=== PATIENT | female | born 1950 | race Caucasian/White ===

== ENCOUNTER 2023-05-27 13:30 | Outpatient (AMB) | payer MEDICARE, SELFPAY ==
--- NOTE | 2023-05-27 13:34 | AM.OFFWIN_ITS ---
Intake Vital Signs 05/27/23 13:35 Height 5 ft 2 in Weight 213 lb BMI 39.0 BP 160/80 H Blood Pressure Location Lt brachial Position Sitting Pulse 101 H Pulse Source Pulse Oximeter Temp 98.0 F Temp Source Temporal Artery Scan Pulse Oximetry (%) 96 Oxygen Delivery Method Room Air Intake Visit Reasons: [employer] LT knee pain Intake Note: pt is here today for lft knee pain started yesterday Patient Tobacco Use Status: Never used Tobacco Allergies amoxicillin Allergy (Mild, Verified 05/27/23 13:39) rash Do you need a note to return to daycare/school/sports/work: No HPI HPI Comments History of Present Illness Details 73 y/o female patient who presents to [facility] with c/o Left knee pain since yesterday. H/o Osteoarthritis on both knees, she currently receives Cortisone Injections every 3 months. Last dose Apr 2023. Reports taking Acetaminophen 650 mg with minimal relief. PFSH Social History Patient Tobacco Use Status: Never used Tobacco Review of Systems Const All systems reviewed & are unremarkable except as noted in HPI and below Physical Exam Vital Signs: Last Vital Signs Temp 98.0 F 05/27/23 13:35 Pulse 101 H 05/27/23 13:35 BP 160/80 H 05/27/23 13:35 Pulse Ox 96 05/27/23 13:35 Oxygen Delivery Method Room Air 05/27/23 13:35 BMI result Body Mass Index 39.0 Const General: comfortable and no acute distress Nutritional Appearance: overweight Orientation/consciousness: patient oriented x3 Neuro General: patient oriented x3, gait normal and no focal motor deficits Extrem Left lower extremity: full ROM, normal capillary refill, knee Details: normal to inspection, tenderness Location: of the patella Details: medially and laterally and normal ROM (Slightly limited due to pain); no swelling and no crepitus, ankle Details: normal to inspection, no edema and normal ROM; no tenderness and no swelling and foot Details: normal capillary refill and toes with normal ROM; no tenderness Psych Speech and movement: Normal speech and movement present Assessment & Plan Assessment & Plan (1) Osteoarthritis of left knee: Code(s): M17.12 - Unilateral primary osteoarthritis, left knee Qualifiers: Osteoarthritis type: unspecified Qualified Code(s): M17.12 - Unilateral primary osteoarthritis, left knee Plan: - Acetaminophen for pain relief - Applied Knee Brace for Support - IceHot - Elevate - Continue f/u with Ortho for Steroid injections as scheduled. Medications: New cyclobenzaprine 10 mg PO BEDTIME 20 tabs 0RF Muscle Spasm M17.12 - Unilateral primary osteoarthritis, left knee lidocaine 5% leave on most painful area for up to 12 hrs 1 patch topical Q24H 30 ea 0RF PAIN M17.12 - Unilateral primary osteoarthritis, left knee acetaminophen 1,000 mg (2 x 500 mg) PO Q6H PRN 30 caps 0RF pain (scale score 7- 10) M17.12 - Unilateral primary osteoarthritis, left knee Coding Level of Care Code New Pt Level 3 (27873) Diagnoses Osteoarthritis of left knee, unspecified osteoarthritis type M17.12 Osteoarthritis type: unspecified Time Spent (min) 15
[2023-05-27 13:35] VITALS: BP 160/80; PULSE 101; TEMP 36.7; O2SAT 96; BMI 39.0
== END 2023-05-27 14:18 | disposition home or self-care (01) ==
PROVIDERS: Visit Provider Nurse Practitioner Family
DX: M17.12 Unilateral primary osteoarthritis, left knee (principal)
CPT/HCPCS: 99203

== ENCOUNTER 2024-05-01 14:21 | Outpatient (AMB) | payer MEDICARE, SELFPAY ==
--- NOTE | 2024-05-01 15:09 | AM.OFFWIN_ITS ---
Intake Vital Signs 05/01/24 15:10 Height 5 ft 2 in BP 130/82 Blood Pressure Location Rt brachial Position Sitting Pulse 76 Pulse Source Pulse Oximeter Temp 98.1 F Temp Source Oral Pulse Oximetry (%) 97 Intake Visit Reasons: EP Cough, chills, aches Patient Tobacco Use Status: Never used Tobacco Allergies amoxicillin Allergy (Mild, Verified 05/01/24 15:10) rash Do you need a note to return to daycare/school/sports/work: Yes HPI HPI Comments History of Present Illness Details History - The patient is a 73-year-old female pr esenting with fatigue and cough x5 days. - No fever or chills are reported; minim al wheezing noted without prior history of significant respiratory illnesses like asthma or COPD. - Past medical history includes previous bronchitis and pneumonia. - Currently utilizing [id number] m edications including Tylenol for symptom relief. - Patient denies disrupted sleep, mentio ns experiencing improved rest. - Recently vaccinated for influenza Physical Exam General: Cooperative, healthy appearing, comfortable and no acute distress Orientation/consciousness: Patient oriented x3 Limitations: No limitations Head: Normal to inspection Ears: Hearing grossly normal bilaterally, external ears normal and TM's normal bilaterally Nose: Normal external nose present, Normal nares present and No nasal discharge present Face and sinus: Normal facial exam and Yes sinuses nontender Mouth: Normal oral and palatal mucosa present and moist mucous membranes Throat: Yes tonsils normal, Yes uvula midline. slight posterior oropharynx erythema Eyes: Appearance normal, both eyes and all related structures Neck: Normal visual inspection Respiratory: Clear to auscultation bilaterally. Normal respiratory effort, able to speak in complete sentences, Actively coughing, no respiratory distress, not tachypneic, no tripod positioning and no use of accessory muscles. Cardiovascular: Regular rate and rhythm. Normal S1 and S2 Skin: No rashes or lesions noted Neuro: Patient oriented x3 Extremities: Normal to inspection and Yes no clubbing, cyanosis or edema PFSH Social History Patient Tobacco Use Status: Never used Tobacco Review of Systems Const All systems reviewed & are unremarkable except as noted in HPI and below Physical Exam Vital Signs: Last Vital Signs Temp 98.1 F 05/01/24 15:10 Pulse 76 05/01/24 15:10 BP 130/82 05/01/24 15:10 Pulse Ox 97 05/01/24 15:10 Assessment & Plan Assessment & Plan (1) Influenza-like illness: Code(s): J11.1 - Influenza due to unidentified influenza virus with other respiratory manifestations Plan: VSS, pt well appearing and PE unremarkable. With symptoms highly indicative of influenza, appropriate Flu, COVID-19, and RSV testing was performed to confirm the diagnosis, with results anticipated by the following morning. Based on the examination and symptomatology, an albuterol inhaler was prescribed to alleviate self reported minor wheezing. Symptomatic management will also include decongestants and the potential use of Benadryl to address any resultant symptom severity, notwithstanding the patient's current satisfactory sleep conditions. Given that the patient is beyond the window for Tamiflu administration, s upportive care including hydration and rest is emphasized. Current examination findings are reassuring, and no additional immediate interventions are deemed necessary at this time. Patient was informed and verbally consented to the use of an ambient scribe for clinic note documentation during this visit Orders: Orders SARS-CoV2/FLU/RSV Today R09.89 - Other specified symptoms and signs involving the circulatory and respiratory systems Medications: New albuterol sulfate 90 mcg/actuation 2 puffs inhalation Q6H PRN 8.5 grams 0RF shortness of breath or wheezing or cough Coding Level of Care Code New Pt Level 3 (61538) Diagnoses Influenza-like illness J11.1
[2024-05-01 15:10] VITALS: BP 130/82; PULSE 76; TEMP 36.7; O2SAT 97
--- OUTSIDE RECORDS SUMMARY | 2024-05-01 16:32 | XMS_ITS | Clinical Summary ---
Author Organization [address] Address [address] [place] [address] Phone Care Team Providers Care Pallet Assembler Name Role Phone Jose Diane Primary Care Provider [phone] Allergies Active Allergy Reactions Criticality Noted Date Comments Amoxicillin Trihydrate Nausea And Vomiting High 10/06 Other Reaction(s): Rash/Dermatitis Bee Venom Protein (Honey Bee) Swelling 08/27/2008 Coconut Oil 02/18/2018 Doxycycline Hyclate Nausea And Vomiting Medium 018 Headache Pollen Extracts Runny nose 07/31/2010 Procaine Hcl High 10/20/2005 had seizure Medications mv-mn/folic ac/calcium/vit K1 (WOMEN'S 50 PLUS MULTIVITAMIN ORAL) Take by mouth. Activ e amLODIPine (NORVASC) 10 mg tablet TAKE ONE TABLET BY MOUTH EVERY DAY 4 Active EPINEPHrine (EpiPen 2-Topher) 0.3 mg/0.3 mL injection Inject 0.3 mg into the muscle as needed for Other (anaphylactic reaction). 2-pack. Fill with whichever brand is covered by insurance. 3 Active estradioL (ESTRACE) 1 mg tablet TAKE ONE TABLET BY MOUTH AT BEDTIME 4 Active fluticasone HFA (FLOVENT HFA) 110 mcg/actuation inhaler Inhale 1 Puff into the lungs 2 times daily for 30 days. 10/25/202 2 Active fluticasone propionate (FLONASE) 50 mcg/actuation nasal spray INHALE 2 SPRAYS IN EACH NOSTRIL DAILY 4 Active levothyroxine (SYNTHROID, LEVOTHROID) 50 mcg tablet TAKE ONE TABLET BY MOUTH EVERY DAY 4 Active LORazepam (ATIVAN) 1 mg tablet TAKE ONE TABLET BY MOUTH EVERY DAY NEEDED FOR ANXIETY 4 Active triamcinolone (KENALOG) 0.1 % cream APPLY TO AFFECTED AREA TWICE A DAY 3 Active celecoxib (CeleBREX) 200 mg capsule TAKE ONE CAPSULE BY MOUTH TWICE A DAY 180 capsule 3 4 Active cyclobenzaprine (FLEXERIL) 10 mg tablet Take 1 tablet (10 mg total) by mouth 3 (three) times a day if needed for muscle spasms. 90 tablet 3 4 Active losartan (COZAAR) 100 mg tablet Take 1 tablet (100 mg total) by mouth 1 (one) time each day. 30 each 5 4 08/15/19 25 Active Active Problems Problem Noted Date Diagnosed Date Osteoarthritis 04/18/2024 Menopausal symptom 04/18/2024 Vasomotor symptoms due to menopause 08/07/2019 Osteoarthritis of both knees 05/18/2016 Allergic conjunctivitis 07/24/2013 Allergic rhinitis 07/24/2013 Obesity, unspecified 04/28/2010 Assessment & Plan (02/16/2024 12:45 PM EST): Orders: Basic metabolic panel; Future Anxiety state 10/19/2005 Assessment & Plan (02/16/2024 12:45 PM EST): Orders: Basic metabolic panel; Future Essential hypertension, benign 10/19/2005 Assessment & Plan (02/16/2024 12:45 PM EST): Orders: Basic metabolic panel; Future Hypothyroidism 10/19/2005 Assessment & Plan (02/16/2024 12:45 PM EST): Orders: Basic metabolic panel; Future Encounters Date Type Department Care Team Description 02/16/2024 12:00 PM EST Office Visit Adult Medicine [facility] [address] [place] [phone] Jose Diane PA Essential hypertension, benign (Primary Dx); Need for prophylactic vaccination and inoculation against influenza; Routine general medical examination at a health care facility; Hypothyroidism, unspecified type; Anxiety state; Obesity without serious comorbidity, unspecified class, unspecified obesity type from Last 3 Months Immunizations Name Administration Dates Next Due Influenza Quadravalent, 0.5m l (Fluad) 65yo and older 02/24/2021 Influenza trivalent, 0.5mL ( Fluad) 65yo and older 02/16/2024,11/18/2022,02/19/2021 Influenza trivalent, 0.5mL, preservative free (Fluarix; FluLaval; Fluzone) ages 6mo and older (Afluria) 3 years and older 12/28/2013,12/07/2011,12/26/2006 Influenza, Unspecified 12/07/2021 Moderna SARS-CoV-2 COVID-19, mRNA, LNP-S, preservative free 07/07/2021 Pneumococcal conjugate 13 va lent (Prevnar 13, PCV13) 2mo and older 02/19/2021,07/21/2018 Pneumococcal polysaccharide 23 valent (Pneumovax 23) 2yo and older 02/12/2021,05/27/2017,03/08/2007 Td Tetanus diptheria (Tdvax) 7yo and older 05/27 Tdap Tetanus diptheria acell ular pertussis (Boostrix; Adacel) 7yo and older 11/15/2006 Zoster Live 04/01/2012 Zoster recombinant (Shingrix ) 19yo and older 07/07/2021,04/08/2021 Surgical History Surgery Date Site/Laterality Comments OTHER SURGICAL HISTORY PROCEDURE: OH TOTAL ABDOMINAL HYSTERECT W/WO RMVL TUBE OVARY; COMMENT: and ovaries APPENDECTOMY PROCEDURE: OH APPENDECTOMY OTHER SURGICAL HISTORY PROCEDURE: HISTORY OTHER; COMMENT: vocal cord polyps twice KNEE SURGERY Bilateral PROCEDURE: HISTORICAL KNEE SURGERY; COMMENT: ARTHROSCOPIC SURGERY - meniscal tear BUNIONECTOMY Bilateral PROCEDURE: OH CORRJ HLX VLGS BNCTY SESMDC W/DOUBLE OSTEOTOMY; COMMENT: bunion surgery COLONOSCOPY 10/04/2003 PROCEDURE: HISTORICAL COLONOSCOPY; COMMENT: normal BREAST BIOPSY 2014ish Left PROCEDURE: BX BREAST; PERC NEEDLE CORE W/IMAG GUID; COMMENT: cyst asp BREAST BIOPSY 05/07/2021 Left PROCEDURE: OH BX BREAST W/DEVICE 1ST LESION ULTRASOUND GUID Medical History Medical History Date Comments Essential hypertension, benign 10/19/2005 D X:Essential hypertension, benign Unspecified hypothyroidism 10/19/2005 DX:Un specified hypothyroidism Anxiety state, unspecified 10/19/2005 DX:An xiety state, unspecified Obesity, unspecified 04/28/2010 DX:Obesity, unspecified Family History Medical History Relation Name Comments Breast cancer Neg Hx Colon cancer Neg Hx Ovarian cancer Neg Hx Relation Name Status Comments Brother 1 Alive HTN Brother 2 Alive Brother 3 Alive Father (Age 62) SC, dm, ht n Mother (Age 84) DM HTN Sister 1 Alive hodgkins lympho ma Sister 2 Alive Sister 3 Alive Social History Tobacco Use Types Packs/Day Years Used Date Smoking Tobacco: Never Smokeless Tobacco: Never Tobacco Cessation:Counseling Given: Not Answered Alcohol Use Standard Drinks/Week Comments Yes 0 (1 standard drink = 0.6 oz pur e alcohol) Housing Instability Answer Date Recorde d Are you worried that in the next 2 months you may not have stable housing? No 02/16/2024 Food Access & Nutrition Answer Date Rec orded Do you have access to a vari ety of food including fruits and vegetables? Yes 02/16/2024 Health Literacy Answer Date Recorded How often do you need to hav e someone help you when you read instructions, pamphlets, or other written material from your doctor or pharmacy? Never 02/16/2024 Caregiver: How often do you need to have someone help you when you read instructions, pamphlets, or other written material from your doctor or pharmacy? Not on file 02/16/2024 Financial Risk Answer Date Recorded How hard is it for you to pa y for the very basics like food, housing, medical care, and air conditioning / heating? Not very hard 02/16/2024 Transportation Answer Date Recorded Has the lack of transportati on kept you from meetings, work, or from getting things needed for daily living? No Has the lack of transportati on kept you from medical appointments or from getting medications? No 02/16/2024 Social Isolation Answer Date Recorded How often do you feel lonely or isolated from th ose around you? Never 02/16/2024 Food Risk Answer Date Recorded Within the past 12 months we worried whether our food would run out before we got money to buy more. Never true 02/16/2024 Within the past 12 months th e food we bought just didn't last and we didn't have money to get more. Never true 02/16/2024 Dependent Care Answer Date Recorded Do you need help finding or paying for care for your loved ones. For example, children's ministries director or elderly care for an older adult? No 02/16/2024 Education Answer Date Recorded Do you think completing more education or training, like finishing a GED, going to college, or learning a trade, would be helpful for you? No 02/16/2024 Employment and Income Answer Date Recor ded During the last four weeks, have you been actively looking for work? No 02/16/2024 Living Situation Answer Date Recorded What is your living situation? 1 04/18/2023 Comments Unknown Sex and Gender Information Value Date Recorded Sex Assigned at Not on file Legal Sex Female 5:14 AM EST Gender Identity Not on file Sexual Orientation Not on file Obstetrics History Last Filed Vital Signs Vital Sign Reading Time Taken Comments Blood Pressure 151/74 02/16/2024 12:07 PM EST provider will be recheck Pulse 79 02/16/2024 12:07 PM EST Temperature 36.1 ??C (96.9 ??F) 02/16/2024 1 2:07 PM EST Respiratory Rate 13 02/16/2024 12:0 7 PM EST Oxygen Saturation - - Inhaled Oxygen Concentration - - Weight 98.8 kg (217 lb 12.8 oz) 02/16/2024 12:07 PM EST Height 157.5 cm (5' 2 ) 02/16/2024 12:0 7 PM EST Body Mass Index 39.84 02/16/2024 12:07 PM EST Plan of Treatment Upcoming Encounters Date Type Department Care Team (Late st Contact Info) Description 06/12/2024 2:40 PM EDT Appointment Radiology Department [address] [phone] Health Maintenance Due Date Last Done Comments RSV Immunization Patients 60+ Years Old (1 - Risk 60-74 years 1-dose series) 2011 COVID-19 Vaccine ( season) 2023 07/07/2021, 01/29/2021, 01/09/2021, Additional history exists Breast Cancer Screening 06/15/2024 06/16/19 23, 05/07/2021, 05/05/2021, Additional history exists Hypertension/CHF/CAD Annual BMP Blood Test 02/13/2025 02/14/2024, 04/12/2023 Depression Screening 02/15/2025 02/16/2024 Falls Risk Assessment 02/15/2025 02/16/2024, 024 Medicare Annual Wellness Visit 02/15/2025 02/16/2024 Social Influencers of Health Screening 02/15/2025 02/16/2024 Osteoporosis Screening (Bone Density Screening) 06/14/2025 06/14/2020 Colorectal Cancer Screening: FIT-DNA (Cologuard) 12/14/2025 12/14/2022 DTaP,Tdap,and Td Vaccines (3 - Td or Tdap) 05/28/2027 05/27/2017, 11/15/2006 Cholesterol Screening (Lipid Panel) 02/13/2029 02/14/2024, 04/12/2023 Hepatitis C Screening Completed 07/21/2018 Pneumococcal Vaccine: 50+ Years Completed 02/19/2021, 02/12/2021, 07/21/2018, Additional history exists Zoster Vaccines Completed 07/07/2021, 03/2021, 04/01/2012 Colorectal Cancer Screening: Colonoscopy Discontinued 12/14/2022 Influenza Vaccine Completed 02/16/2024, , 12/07/2021, Additional history exists HIB Vaccines Aged Out No longer eligi ble based on patient's age to complete this topic HPV Vaccines Aged Out No longer eligi ble based on patient's age to complete this topic Hepatitis A Vaccines Aged Out No long er eligible based on patient's age to complete this topic Hepatitis B Vaccines Aged Out No long er eligible based on patient's age to complete this topic IPV Vaccines Aged Out No longer eligi ble based on patient's age to complete this topic MMR Vaccines Aged Out No longer eligi ble based on patient's age to complete this topic Meningococcal ACWY Vaccine Aged Out N o longer eligible based on patient's age to complete this topic Meningococcal B Vacine Aged Out No lo nger eligible based on patient's age to complete this topic RSV Immunization Patients Under 20 months Aged Out No longer eligible based on patient's age to complete this topic Varicella Vaccines Aged Out No longer eligible based on patient's age to complete this topic Procedures Procedure Name Priority Date/Time Associated Diagnosis Comments THYROID STIMULATING HORMONE WITH REFLEX TO FREE T4 AND FREE T3 Routine 02/14/2024 1:53 PM EST Generalized anxiety disorder Pre-operative cardiovascular examination Essential hypertension, malignant Myxedema heart disease COMPREHENSIVE METABOLIC PANEL Routine 02/14/2024 1:53 PM EST Generalized anxiety disorder Pre-operative cardiovascular examination Essential hypertension, malignant Myxedema heart disease LIPID PANEL WITH REFLEX TO DIRECT LDL Routine 02/14/2024 1:53 PM EST Generalized anxiety disorder Pre-operative cardiovascular examination Essential hypertension, malignant Myxedema heart disease FALLS RISK ASSESSMENT Routine 03/22/2023 COLONOSCOPY Routine 12/14/2022 SCREENING MAMMOGRAPHY BI 2-VIEW BREAST INC CAD Routine 06/15/2022 6:27 PM EDT Encounter for screening mammogram for malignant neoplasm of breast DXA BONE DENSITY STUDY 1+ SITS AXIAL SKEL Routine 06/14/2020 4:11 PM EDT Encounter for screening for osteoporosis HEPATITIS C SCREENING Routine 07/21/2018 from Last 3 Months or Most Recently Relevant to Health Maintenance Results * Thyroid stimulating hormone with reflex to free t4 and free t3 (02/14/2024 1:53 PM EST) TSH 2.35 0.40 - 4.00 mcIU/mL LAB CHEMISTRY METHOD 02/14/2024 6:13 PM EST [facility] Blood Venous blood specimen / Unknown Venipuncture / Unknown 02/14/2024 1:53 PM EST 02/14/2024 1:53 PM EST Jose MELO LAB BLOOD ORDERABLES Tiffanie l Result [facility] [address] [place] [address], [place] [phone] * (ABNORMAL) Lipid panel with reflex to direct LDL (02/14/2024 1:53 PM EST) Cholesterol 212(H) 0 - 200 mg/dL LAB CHEMISTRY METHOD 02/14/2024 6:41 PM EST [facility] Triglycerides 174(H) 0 - 150 mg/dL LAB CHEMISTRY METHOD 02/14/2024 6:41 PM EST [facility] HDL 71 >=40 mg/dL LAB CHEMISTRY METHOD 02/14/2024 6:41 PM [facility] LDL Calculated 106(H) 0 - 100 mg/dL LAB CHEMISTRY METHOD 02/14/2024 6:41 PM EST [facility] VLDL Cholesterol Manuel 34.8 mg/dL LAB CHEMISTRY METHOD 02/14/2024 6:41 PM EST [facility] Non HDL Chol. (LDL+VLDL) 141 <145 mg/dL LAB CHEMISTRY METHOD 02/14/2024 6:41 PM [facility] Chol/HDL Ratio 3.0 0.0 - 4.4 LAB CHEMISTRY METHOD 02/14/2024 6:41 PM [facility] Blood Venous blood specimen / Unknown Venipuncture / Unknown 02/14/2024 1:53 PM EST 02/14/2024 1:53 PM EST Jose MELO LAB BLOOD ORDERABLES Tiffanie l Result [facility] [address] [place] [address], [place] [phone] * (ABNORMAL) Comprehensive metabolic panel (02/14/2024 1:53 PM EST) Sodium 137 133 - 145 mmol/L LAB CHEMISTRY METHOD 02/14/2024 6:41 PM [facility] Potassium 4.1 3.5 - 5.5 mmol/L LAB CHEMISTRY METHOD 02/14/2024 6:41 PM [facility] Chloride 104 96 - 110 mmol/L LAB CHEMISTRY METHOD 02/14/2024 6:41 PM [facility] CO2 27 21 - 32 mmol/L LAB CHEMISTRY METHOD 02/14/2024 6:41 PM [facility] Anion Gap 6 3 - 11 LAB CHEMISTRY METHOD 02/14/2024 6:41 PM [facility] Glucose 117(H) 70 - 100 mg/dL LAB CHEMISTRY METHOD 02/14/2024 6:41 PM [facility] BUN 22 5 - 25 mg/dL LAB CHEMISTRY METHOD 02/14/2024 6:41 PM [facility] Creatinine 1.09 0.50 - 1.10 mg/dL LAB CHEMISTRY METHOD 02/14/2024 6:41 PM [facility] eGFR 54(L) >=60 mL/min/1. 73m2 LAB CHEMISTRY METHOD 02/14/2024 6:41 PM [facility] Comment:Calculation based on the??Chronic Kidney Disease Epidemiology Collaboration (CKD-EPI) equation refit??without adjustment for race. BUN/Creatinine Ratio 20.2 LAB CHEMISTRY METHOD 02/14/2024 6:41 PM [facility] Calcium 9.4 8.5 - 10.5 mg/dL LAB CHEMISTRY METHOD 02/14/2024 6:41 PM [facility] AST (SGOT) 17 10 - 42 unit/L LAB CHEMISTRY METHOD 02/14/2024 6:41 PM [facility] ALT (SGPT) 20 10 - 60 unit/L LAB CHEMISTRY METHOD 02/14/2024 6:41 PM EST [facility] Alkaline Phosphatase 61 42 - 121 unit/L LAB CHEMISTRY METHOD 02/14/2024 6:41 PM [facility] Total Protein 7.0 6.0 - 8.0 g/dL LAB CHEMISTRY METHOD 02/14/2024 6:41 PM [facility] Albumin 3.4 3.2 - 5.0 g/dL LAB CHEMISTRY METHOD 02/14/2024 6:41 PM [facility] Total Bilirubin 0.3 0.0 - 1.4 mg/dL LAB CHEMISTRY METHOD 02/14/2024 6:41 PM [facility] Blood Venous blood specimen / Unknown Venipuncture / Unknown 02/14/2024 1:53 PM EST 02/14/2024 1:53 PM EST Jose MELO LAB BLOOD ORDERABLES Tiffanie l Result [facility] [address] [place] [address], * Falls Risk Assessment (03/22/2023) Falls Risk Assessment Abstracted [facility] Provider HEALTH MAINTENANCE Final Result * Colonoscopy (12/14/2022) Colonoscopy No Interpretation , Abstracted Anatomical Region Laterality Modality Other [facility] Provider HEALTH MAINTENANCE Final Result * SCREENING MAMMOGRAPHY BI 2-VIEW BREAST INC CAD (06/15/2022 6:27 PM EDT) Anatomical Region Laterality Modality Radiographic Reyna ging 04/17/2021 5:53 PM EST Narrative 06/16/2022 9:34 AM EDT This is a summary report. The complete report is available in the patient's medical record. If you cannot access the medical record, please contact the sending organization for a detailed fax or copy. Full field digital screening tomosynthesis mammography, reviewed with CAD and compared to previous. ??The breasts are composed of fatty and fibroglandular tissue. ??No suspicious mass, architectural distortion or suspicious calcifications are identified. IMPRESSION: : No mammographic evidence of malignancy. BIRADS 1-Negative; N. 5 year breast cancer risk assessment 1.7 % Lifetime breast cancer risk assessment 4.8 % Breast cancer risk category Low (<15%) Procedure Note Leidy Gottlieb MD - 04/12/2023 This is a summary report. The complete report is available in thepatient's medical record. If you cannot access the medical record, pleasecontact the sending organization for a detailed fax or copy. Full field digital screening tomosynthesis mammography, reviewed with CADand compared to previous. The breasts are composed of fatty andfibroglandular tissue. No suspicious mass, architectural distortion orsuspicious calcifications are identified. IMPRESSION: : No mammographic evidence of malignancy. BIRADS 1-Negative; N. 5 year breast cancer risk assessment 1.7 % Lifetime breast cancer risk assessment 4.8 % Breast cancer risk category Low (<15%) us Jose MELO IMG XR PROCEDURES Final R esult * DXA BONE DENSITY STUDY 1+ SITS AXIAL SKEL (06/14/2020 4:11 PM EDT) Anatomical Region Laterality Modality Bone Densitometr y 02/06/2020 10:2 4 AM EST Narrative 06/14/2020 6:36 PM EDT Clinical history: menopausal/postmenopausal disorder Scans of the lumbar spine and hips were performed on a [employer] fan beam bone densitometer. ? Bone mineral density measurements and associated T and Z scores respectively are as follows: Lumbar Spine: L1-L4 BMD: 1.072 g/cm2 ? T-Score: 0.2 ? Z-Score: 2.3 Left Proximal Femur: Neck BMD: 0.789 g/cm2 ? T-Score: -0.5 ?? Z-Score: 1.2 Total BMD: 0.977 g/cm2 ? T-Score: 0.3 ?Z-Score: 1.7 Compared with standards for the young adult, lowest measured bone density places the patient in the W.H.O. normal range. IMPRESSION: IMPRESSION: Normal bone density. The NOF guidelines recommend that FDA approved medical therapies be considered in postmenopausal women and men age >50 years with a: i. Hip or vertebral (clinical or morphometric) fracture ii. T score of < -2.5 at the spine or hip iii. 10 year fracture probability by FRAX of >3% for hip fracture, or >20% for major osteoporotic fracture PLEASE NOTE: ?? W.H.O. classification is based on lowest measured density at the spine, femoral neck, or total hip.This classification has prognostic significance when applied to post menopausal women and older men. 1) ??The World Health Organization defines low BMD as follows: ?T-score ? Normal ? at or > -1 Osteopenia ? < -1 and ??> - 2.5 Osteoporosis ? at or < -2.5 without fractures Established osteoporosis ? < -2.5 with fractures Procedure Note Kalyan Bowman MD - 02/24/2022 Clinical history: menopausal/postmenopausal disorder Scans of the lumbar spine and hips were performed on a [employer] beam bone densitometer. Bone mineral density measurements and associated T and Z scoresrespectively are as follows: Lumbar Spine: L1-L4 BMD: 1.072 g/cm2 T-Score: 0.2 Z-Score: 2.3 Left Proximal Femur: Neck BMD: 0.789 g/cm2 T-Score: -0.5 Z-Score: 1.2 Total BMD: 0.977 g/cm2 T-Score: 0.3 Z-Score: 1.7 Compared with standards for the young adult, lowest measured bone densityplaces the patient in the W.H.O. normal range. IMPRESSION: IMPRESSION: Normal bone density. The NOF guidelines recommend that FDA approved medical therapies beconsidered in postmenopausal women and men age >50 years with a: i. Hip or vertebral (clinical or morphometric) fracture ii. T score of < -2.5 at the spine or hip iii. 10 year fracture probability by FRAX of >3% for hip fracture, or >20%for major osteoporotic fracture PLEASE NOTE: W.H.O. classification is based on lowest measured density at the spine,femoral neck, or total hip.This classification has prognostic significance when applied to postmenopausal women and older men. 1) The World Health Organization defines low BMD as follows: T-score Normal at or > -1 Osteopenia < -1 and > -2.5 Osteoporosis at or < -2.5 withoutfractures Established osteoporosis < -2.5 with fractures Taz Cleaning MD [facility] [place] PROCED[place] Final Result * Hepatitis C Screening (07/21/2018) [facility] Hepatitis C Screening Abstracted Historical Provider HEALTH MAINTENANCE Final Result from Last 3 Months or Most Recently Relevant to Health Maintenance Insurance MEDICARE [facility] Care Teams Pallet Assembler Relationship Specialty Start Date End Date Jose Diane PA [address] [place] [address] PCP - General Internal Medicine 02/06/20
--- OUTSIDE RECORDS SUMMARY | 2024-05-01 16:32 | XMS_ITS | Patient Health Record ---
Author Organization [facility] Address [address] [place] [address] Support Name Relationship Address Phone JOY BARNES Guarantor Unknown [phone] Reason For Referral No Information Medications Medication SIG (Take, Route, Frequency, Duration) Notes Start Date End Date Status Ativan 1MG 1 ORAL three times d aily for [facility] 05/26/2011 Active Norvasc 10MG 1 [place] [facility] [place] Active Tylenol Extra Strength 500MG 2 [place]AL four times daily [place] [facility] [place]/26/2011 Active Premarin 0.45 MG 1 ORAL daily [place] [facility] [place]/26/2011 Active triamcinolone 0.1% CR JORGE LUIS AA EXTERNAL tw ice daily for [facility] 05/26/2011 Active Synthroid 25MCG 1 [place]AL daily [place] [facility] [place]/26/[place] Active Problems Problem Type SNOMED Code ICD Code Onset Dates Problem Status W/U Status Risk Notes Problem Hypothyroidism (80826120) Unspecified hypothyroidism (244.9) Active confirmed Major Problem Essential hypertension (94999643) Unspecified essential hypertension (401.9) Active confirmed Major Problem Menopausal symptom (02372310) Symptomatic menopausal or female climacteric states (627.2) Active confirmed Major Problem Osteoarthritis (990104054) Osteoarthrosis, unspecified whether generalized or localized, unspecified site (715.90) Active confirmed Major Problem Gynecological examination normal (995144567095724) Routine gynecological examination (V72.31) Active confirmed Major Problem Screening for malignant neoplasm of colon (740683916) Special screening for malignant neoplasms, colon (V76.51) Active confirmed Major Plan Of Treatment No Information Insurance Providers Payer Name Payer Address Payer Phone Subscriber Number Group Number Insured Name Patient Relationship to Insured Coverage Start Date Coverage End Date [facility] [address] [address] [place] [address] [id number] JOY BARNES Self - patient is the insured
--- OUTSIDE RECORDS SUMMARY | 2024-05-01 16:32 | XMS_ITS ---
Author Name [facility] Organization Unknown Allergies Allergen Reaction Severity Comment Documented Date Source Statu s LIDOCAINE [facility] AMOXICILLIN [facility] Active
== END 2024-05-01 15:31 | disposition home or self-care (01) ==
PROVIDERS: Visit Provider Physician Assistant
DX: J11.1 Influenza due to unidentified influenza virus with other respiratory manifestations (principal)

== ENCOUNTER 2024-05-01 14:21 | Outpatient (REF) | payer MEDICARE, SELFPAY ==
--- OUTSIDE RECORDS SUMMARY | 2024-05-01 17:37 | XMS_ITS | Clinical Summary ---
Author Organization [address] Address [address] [place] [address] Phone Care Team Providers Care Community Health Planning Director Name Role Phone Jose Diane Primary Care Provider [phone] Allergies Active Allergy Reactions Criticality Noted Date [...] 12:00 PM EST Office Visit Adult Medicine [facility] [address] [place] [phone] Jose Diane PA Essential hypertension, benign (Primary [...] Date Site/Laterality Comments OTHER SURGICAL HISTORY PROCEDURE: ND TOTAL ABDOMINAL HYSTERECT W/WO RMVL TUBE OVARY; COMMENT: and ovaries APPENDECTOMY PROCEDURE: ND APPENDECTOMY OTHER SURGICAL HISTORY PROCEDURE: HISTORY OTHER; COMMENT: vocal cord polyps twice KNEE SURGERY Bilateral PROCEDURE: HISTORICAL KNEE SURGERY; COMMENT: ARTHROSCOPIC SURGERY - meniscal tear BUNIONECTOMY Bilateral PROCEDURE: ND CORRJ HLX VLGS BNCTY SESMDC W/DOUBLE OSTEOTOMY; COMMENT: bunion surgery COLONOSCOPY 10/04/2003 PROCEDURE: HISTORICAL COLONOSCOPY; COMMENT: normal BREAST BIOPSY 2014ish Left PROCEDURE: BX BREAST; PERC NEEDLE CORE W/IMAG GUID; COMMENT: cyst asp BREAST BIOPSY 05/07/2021 Left PROCEDURE: ND BX BREAST W/DEVICE 1ST LESION ULTRASOUND GUID [...] Alive Brother 3 Alive Father (Age 62) [place], dm, ht n Mother (Age 84) DM [...] care for your loved ones. For example, child welfare social worker or elderly care for an older adult? [...] 06/12/2024 2:40 PM EDT Appointment Radiology Department [address] [phone] Health Maintenance Due Date Last Done Comments [...] Result [facility] [address] [place] [address], [place] [phone] * (ABNORMAL) Lipid panel with reflex to direct LDL (02/14/2024 1:53 PM EST) Cholesterol 212(H) 0 - 200 mg/dL LAB CHEMISTRY METHOD 02/14/2024 6:41 PM EST [facility] Triglycerides 174(H) 0 - 150 mg/dL LAB CHEMISTRY METHOD 02/14/2024 6:41 PM EST [facility] HDL 71 >=40 mg/dL LAB CHEMISTRY METHOD 02/14/2024 6:41 PM [facility] LDL Calculated 106(H) 0 - 100 mg/dL LAB CHEMISTRY METHOD 02/14/2024 6:41 PM EST [facility] VLDL Cholesterol Manuel 34.8 mg/dL LAB CHEMISTRY METHOD 02/14/2024 6:41 PM EST [facility] Non HDL Chol. (LDL+VLDL) 141 <145 mg/dL LAB CHEMISTRY METHOD 02/14/2024 6:41 PM [facility] Chol/HDL Ratio 3.0 0.0 - 4.4 LAB CHEMISTRY METHOD 02/14/2024 6:41 PM [facility] Blood Venous blood specimen / Unknown Venipuncture / Unknown 02/14/2024 1:53 PM EST 02/14/2024 1:53 PM EST Jose MELO LAB BLOOD ORDERABLES Tiffanie l Result [facility] [address] [place] [address], [place] [phone] * (ABNORMAL) Comprehensive metabolic panel (02/14/2024 1:53 PM EST) Sodium 137 133 - 145 mmol/L LAB CHEMISTRY METHOD 02/14/2024 6:41 PM [facility] Potassium 4.1 3.5 - 5.5 mmol/L LAB CHEMISTRY METHOD 02/14/2024 6:41 PM [facility] Chloride 104 96 - 110 mmol/L LAB CHEMISTRY METHOD 02/14/2024 6:41 PM [facility] CO2 27 21 - 32 mmol/L LAB CHEMISTRY METHOD 02/14/2024 6:41 PM [facility] Anion Gap 6 3 - 11 LAB CHEMISTRY METHOD 02/14/2024 6:41 PM [facility] Glucose 117(H) 70 - 100 mg/dL LAB CHEMISTRY METHOD 02/14/2024 6:41 PM [facility] BUN 22 5 - 25 mg/dL LAB CHEMISTRY METHOD 02/14/2024 6:41 PM [facility] Creatinine 1.09 0.50 - 1.10 mg/dL LAB CHEMISTRY METHOD 02/14/2024 6:41 PM [facility] eGFR 54(L) >=60 mL/min/1. 73m2 LAB CHEMISTRY METHOD 02/14/2024 6:41 PM [facility] Comment:Calculation based on the??Chronic Kidney Disease Epidemiology Collaboration (CKD-EPI) equation refit??without adjustment for race. BUN/Creatinine Ratio 20.2 LAB CHEMISTRY METHOD 02/14/2024 6:41 PM [facility] Calcium 9.4 8.5 - 10.5 mg/dL LAB CHEMISTRY METHOD 02/14/2024 6:41 PM [facility] AST (SGOT) 17 10 - 42 unit/L LAB CHEMISTRY METHOD 02/14/2024 6:41 PM [facility] ALT (SGPT) 20 10 - 60 unit/L LAB CHEMISTRY METHOD 02/14/2024 6:41 PM EST [facility] Alkaline Phosphatase 61 42 - 121 unit/L LAB CHEMISTRY METHOD 02/14/2024 6:41 PM [facility] Total Protein 7.0 6.0 - 8.0 g/dL LAB CHEMISTRY METHOD 02/14/2024 6:41 PM [facility] Albumin 3.4 3.2 - 5.0 g/dL LAB CHEMISTRY METHOD 02/14/2024 6:41 PM [facility] Total Bilirubin 0.3 0.0 - 1.4 mg/dL LAB CHEMISTRY METHOD 02/14/2024 6:41 PM [facility] Blood Venous blood specimen / Unknown Venipuncture / Unknown 02/14/2024 1:53 PM EST 02/14/2024 1:53 PM EST Jose MELO LAB BLOOD ORDERABLES Tiffanie l Result [facility] [address] [place] [address], * Falls Risk Assessment (03/22/2023) Falls Risk Assessment Abstracted [facility] Provider HEALTH MAINTENANCE Final Result * Colonoscopy (12/14/2022) Colonoscopy No Interpretation , Abstracted Anatomical Region Laterality Modality Other [facility] Provider HEALTH MAINTENANCE Final Result * [...] spine and hips were performed on a [employer] fan beam bone densitometer. ? Bone mineral [...] spine and hips were performed on a [employer]/[address] beam bone densitometer. Bone mineral density measurements [...] < -2.5 with fractures Taz Cleaning MD [facility] DXA PROCEDURES Final Result * Hepatitis C Screening (07/21/2018) [facility] Hepatitis C Screening Abstracted Historical Provider HEALTH MAINTENANCE Final Result from Last 3 Months or Most Recently Relevant to Health Maintenance Insurance MEDICARE [facility] Care Teams Community Health Planning Director Relationship Specialty Start Date End Date Jose Diane PA [address] [place] [address] PCP - General Internal Medicine 02/06/20
[2024-05-02 13:37] LABS: Influenza A PCR POSITIVE (Negative); Influenza B PCR NEGATIVE (Negative); Resp Syncy Virus RNA Qual PCR NEGATIVE (Negative); SARS COV2 PCR INHOUSE NEGATIVE (Negative)
== END 2024-05-01 14:22 | disposition home or self-care (01) ==
LOC: HO.LAB 14:21
PROVIDERS: Visit Provider Physician Assistant
DX: J11.1 Influenza due to unidentified influenza virus with other respiratory manifestations (principal); R09.89 Other specified symptoms and signs involving the circulatory and respiratory systems
CPT/HCPCS: 0241U; 99202